=== PATIENT | female | born 1950 | race Caucasian/White ===

== ENCOUNTER 2016-09-11 12:00 | Outpatient (CLI) | payer MEDICAID ==
--- OUTSIDE RECORDS SUMMARY | 2016-09-10 05:54 | XMS REPORT | Continuity of Care Document ---
Author Author [facility] Organization [facility] Address Unknown Phone Unavailable Care Team Providers Care Photographic Equipment Assembler Name Role Phone PCP Unavailable Source Comments Some departments are not documenting in the electronic medical record. If you do not see the information that you expected, contact Release of Information in the Health Information Management department at [phone] for further assistance in locating additional records.[facility] Active Allergies and Adverse Reactions Allergen Noted Date Severity Reactions Comments Lactose 02/07/2016 Low UNKNOWN Pcn 02/07/2016 Low UNKNOWN Current Medications Prescription Sig. Disp. Refills Start End Date Status Date escitalopram oxalate Take 5 mg by mouth daily. Active (LEXAPRO) 10 mg tablet cyanocobalamin(+) Take 1,000 mcg by mouth Active (VITAMIN B-12) 500 mcg daily. tablet ERGOCALCIFEROL (VITAMIN Take 4,000 Int'l Units by Active D2) (VITAMIN D PO) mouth daily. CALCIUM CARBONATE Take 1 Tab by mouth Active (CALCIUM 500 PO) daily. aspirin EC 81 mg tablet Take 81 mg by mouth Active daily. Take with food. OMEPRAZOLE (PRILOSEC PO) Take 1 Tab by mouth Active daily. triamcinolone (NASACORT) Apply 2 Sprays to each Active 55 mcg nasal inhaler nostril as directed daily. MULTIVITAMINS WITH Take 1 Tab by mouth Active FLUORIDE (MULTI-VITAMIN daily. PO) loratadine (CLARITIN) 10 Take 10 mg by mouth Active mg tablet daily. gabapentin (NEURONTIN) Take 1 Cap by mouth at 60 Cap 5 02/07/20 Active 100 mg capsule bedtime daily. If 16 tolerating well may increase in 1-2 weeks up to 2 tabs at bedtime. Indications: NEUROPATHIC PAIN Active Problems Problem Noted Date MS (multiple sclerosis) ([facility]) 02/07/2016 Overview: Multiple Sclerosis Subtype: Relapsing remitting, last relapse 2015 Symptom onset: 1995 Date of Diagnosis: 1995 Current DMD: None Prior Medication failures: Solumedrol caused hypotension. Responded to ACTH Last MRI 11/2015 MRI brain shows no enhancing lesions per report MRI C-spine shows no lesions MRI T-spine shows 1 posterior cord lesion Last Assessment & Plan: Patient with history of RRMS presents to clinic to establish care her in [place] after moving from [place]. Her history, exam and MRI reports are consistent with a diagnosis of RRMS. She has not had many relapses and no relapses in the last year with no current activity on last MRI. Will repeat MRI brain in 6 months due to relapse last year Will continue off DMDs for now Continue vitamin D supplementation Encouraged healthy diet and exercise Will try lower dose of gabapentin for her neuropathic pain Will also try compounded gabapentin, amitriptyline, and lidocaine topical cream Social History Tobacco Use Types Packs/Day Years Used Date Former Smoker Quit: 02/05/1987 Smokeless Tobacco: Never Used Alcohol Use Drinks/Week oz/Week Comments Yes Seldom Last Filed Vital Signs Vital Sign Reading Time Taken Blood Pressure 160/89 02/07/2016 3:41 PM CDT Pulse 61 02/07/2016 3:41 PM CDT Temperature - - Respiratory Rate - - Height 1.626 m (5' 4") 02/07/2016 3:41 PM CDT Weight 86.002 kg (189 lb 9.6 oz) 02/07/2016 3:41 PM CDT Body Mass Index 32.53 02/07/2016 3:41 PM CDT Oxygen Saturation - - Plan of Care Health Maintenance Due Date Last Done Comments Hepatitis C Screening 1950 Physical (Comprehensive) 12/04/1959 Exam Pertussis Vaccine 12/04/1963 Tetanus Vaccine 1969 Cervical Cancer Screening 1973 Breast Cancer Screening 1992 Colorectal Cancer 2002 Screening Shingles Vaccine 2012 Influenza Vaccine 02/22/2016 Results from Last 3 Months Not on file
[~2016-09-11] VITALS: Ht 165.1 cm; Wt 86.2 kg
[~2016-09-11 12:00] MED LIST: CHOL500044 PO; CYAN50008 PO; ESCI10TA PO; GABA-486 PO; LORA10TA7 PO; NF-ESOM40C PO; TRIA10.8 NSEACH
[2016-09-12] MEDS ORDERED: SUCR1TAB36 PO (10:13)
[2016-09-12] MEDS ORDERED: PANT40TA2 PO (10:13)
== END 2016-09-11 13:19 ==
LOC: PREOP 12:00
PROVIDERS: ATTEND Surgery
DX: Z01.818 Encounter for other preprocedural examination (principal); R19.5 Other fecal abnormalities; K21.9 Gastro-esophageal reflux disease without esophagitis

== ENCOUNTER 2016-09-12 07:46 | Day surgery (SDC) | payer MEDICAID ==
[~2016-09-12] VITALS: Ht 165.1 cm; Wt 86.2 kg
[2016-09-12] MEDS ORDERED: NS IV 1000 ML 1,000 ML IV STA (08:13)
[2016-09-12 08:15] VITALS: BP 144/89
[2016-09-12] MEDS ORDERED: HURRICAINE EXT TUBE (BENZOCAINE) XX PRN (08:15)
[2016-09-12] MEDS ORDERED: NS IV 1000 ML 1,000 ML ONE (08:21)
[2016-09-12] MEDS ORDERED: MIDAZOLAM 2 MG/2 ML (VERSED) VIAL ONE (09:21)
[2016-09-12] MEDS ORDERED: proPOfol 200 MG/20 ML (DIPRIVAN) VIAL IV ONE (09:21)
[2016-09-12] MEDS ORDERED: ONDANSETRON 4 MG/2 ML (SDV) Z0FRAN ONE (09:33)
--- NOTE | 2016-09-12 09:38 | Progress Note-Pre Operative ---
Pre-Operative Progress Note H&P Reviewed The H&P was reviewed, patient examined and no changes noted. Date H&P Reviewed: Sep 12, 2016 Time H&P Reviewed: 09:38 Pre-Operative Diagnosis: gerd, change in bowel habits SURINDER WOODS DO Sep 12, 2016 09:38
[2016-09-12] MEDS ORDERED: GLYCOPYRROLATE 0.2 MG/ML (ROBINUL) 2 ML VIAL ONE (09:56)
[2016-09-12] MEDS ORDERED: PANT40TA2 PO (10:13)
[2016-09-12] MEDS ORDERED: SUCR1TAB36 PO (10:13)
--- NOTE | 2016-09-12 10:14 | Discharge Inst-Simple/Standard ---
Discharge Inst-Standard Discharge Medications New, Converted or Re-Newed RX: RX on Chart Patient Instructions/Follow Up Plan of Care/Instructions/FU: Colonoscopy in 10 years. Follow up with Dr. Fernandez in clinic in 2-3 weeks Small Frequent meals Activity as Tolerated: Yes Discharge Diet: Eat Small Frequent Meals CARLOS ALBERTO CONNOLLY APRN Sep 12, 2016 10:14
--- NOTE | 2016-09-12 10:30 | Progress Note-Post Operative ---
Post-Operative Progess Note Pre-Operative Diagnosis gerd, change in bowel habits Post-Operative Diagnosis minimal gastritis, hiatal hernia, normal colon Post-Op Procedure Note Date of Procedure: Sep 12, 2016 Procedure Note/Findings see note Anesthesia Type per heel caser Estimated blood loss (mL): none Specimen(s) collected antrum, ge junction SURINDER WOODS DO Sep 12, 2016 10:30 am
[2016-09-12 10:35] VITALS: BP 137/87
[2016-09-12 11:10] VITALS: BP 149/84
[2016-09-12 11:20] VITALS: BP 149/84
--- NOTE | 2016-09-12 12:52 | PROCEDURE REPORT ---
PROCEDURE PHYSICIAN: SURINDER WOODS DATE OF PROCEDURE: PREOPERATIVE DIAGNOSIS: 1. GERD. 2. Change in bowel habits. POSTOPERATIVE DIAGNOSES: 1. Minimal gastritis. 2. Hiatal hernia. 3. Normal colon. PROCEDURE: 1. EGD with biopsies. 2. Colonoscopy. SURGEON: Rebecca. ANESTHESIA: Per UTILITY AIDE. ESTIMATED BLOOD LOSS: None. COMPLICATIONS: None. INDICATIONS: The patient is a 65-year-old female was slightly worsening gastroesophageal reflux disease. She also had change in bowel habits. She understands the risk and benefits and wishes to proceed with procedure. Consent was signed on the chart. PROCEDURE: The patient was taken to the endoscopy suite, placed left lateral recumbent position. Timeout was performed. The scope was then inserted in the mouth down the esophagus, stomach and into the duodenum. There were no polyps, masses or ulcerations within the duodenum. The scope was then slowly retracted back into the stomach which was further insufflated. Changes of a little bit of minimal gastritis apparent. Biopsy of the antrum was obtained. The scope was also retroflexed noting no other pathology except for a hiatal hernia. The scope was then returned to its normal position slowly returned back into the distal esophagus. A biopsy was obtained at the GE junction was some slight erythematous changes. The scope was slowly retracted back noting no other pathology. COLONOSCOPY: Digital rectal exam was performed. There is no palpable polyps, masses, ulcerations. The scope was inserted into the rectum and advanced all of the way to the cecum with minimal difficulty. Prep was adequate. There were no polyps, masses, ulcerations within the cecum. The scope was then slowly retracted back. There were no polyps, masses, ulcerations within the, ascending, transverse, descending and sigmoid colon. There is no polyps, masses ulcers in the sigmoid colon. The scope was continued to be retracted until the rectum, where it was inserted and removed several times noting no other pathology. The patient tolerated procedure well without any complications. She was taken to recovery room in stable condition. RECOMMENDATIONS: The patient will be changed to Protonix 40 mg daily and Carafate 1 gram 4 times a day. The patient will need repeat colonoscopy in 10 years unless family history of colon cancer, then it would be every 5 years. If she has any problems prior to that, she should be reevaluated at that time. Job ID: [id number] Dictated Date: 09/12/2016 10:30:46 Cleaning Crew Member Date: 09/12/2016 12:45:15 / paz
--- OUTSIDE RECORDS SUMMARY | 2016-09-15 08:28 | XMS REPORT ---
Author Author LARY KIRKLAND [facility] Address Unknown Phone Unavailable Care Team Providers Care Rf Microwave Engineer Name Role Phone LARY KIRKLAND CP Unavailable Allergies No Known Allergies Problems Problem Type Condition Code Onset Dates Condition Status Problem Chronic kidney disease, unspecified stage N18.9 Active Problem Elevated blood pressure I10 Active Problem Multiple sclerosis G35 Active Problem Chronic pain G89.29 Active Medications No Known Medications Results No Known Results Summary Purpose eClinicalWorks Submission
--- OUTSIDE RECORDS SUMMARY | 2016-09-15 08:28 | XMS REPORT ---
Author Author LARY KIRKLAND [facility] Address [address] [place] [address] Care Team Providers Care Parts Counterman Name Role Phone LARY KIRKLAND Unavailable PROBLEMS Type Condition ICD9-CM Code [id number] Code Onset Dates Condition Status SNOMED Code Problem Multiple sclerosis G35 Active [id number] Problem Chronic kidney disease, unspecified stage N18.9 Active 916083994 Problem Elevated blood pressure I10 Active 95135827 Problem Chronic pain G89.29 Active 47764937 ALLERGIES Unknown Allergies SOCIAL HISTORY No smoking Hx information available PLAN OF CARE VITAL SIGNS MEDICATIONS Medication Instructions Dosage Frequency Start Date End Date Duration Status Escitalopram Oxalate 10 mg Orally Once a day 1/2 tablet 24h 30 days Active RESULTS No Results PROCEDURES No Known procedures IMMUNIZATIONS No Known Immunizations
--- OUTSIDE RECORDS SUMMARY | 2016-09-15 08:28 | XMS REPORT | Continuity of Care Document ---
Author Author [facility] Organization [facility] Address Unknown Phone Unavailable Care Team Providers Care Ambulance Paramedic Name Role Phone PCP Unavailable Source Comments Some departments are not documenting in the electronic medical record. If you do not see the information that you expected, contact Release of Information in the Health Information Management department at [phone] for further assistance in locating additional records.[facility] Active Allergies and Adverse Reactions Allergen Noted [...] Problems Problem Noted Date MS (multiple sclerosis) ([facility]) 02/07/2016 Overview: Multiple Sclerosis Subtype: Relapsing remitting, last relapse 2014 Symptom onset: 1995 Date of Diagnosis: 1995 Current DMD: None Prior Medication failures: Solumedrol caused hypotension. Responded to ACTH Last MRI 11/2015 MRI brain shows no enhancing lesions per report MRI C-spine shows no lesions MRI T-spine shows 1 posterior cord lesion Last Assessment & Plan: Patient with history of RRMS presents to clinic to establish care her in [place] after moving from [place]. Her history, exam and MRI reports are [...] 2002 Screening Shingles Vaccine 2012 Influenza Vaccine 02/21/2017 Results from Last 3 Months Not on file
--- OUTSIDE RECORDS SUMMARY | 2016-09-15 08:29 | XMS REPORT ---
Author Author LARY KIRKLAND [facility] [employer] Address Unknown Phone Unavailable Care Team Providers Care Fisher Name Role Phone LARY KIRKLAND Unavailable Allergies, Adverse Reactions, Alerts Substance Reaction Event Type Penicillin V Potassium rash Drug Allergy MethylPREDNISolone bradycardia Drug Allergy NSAIDS kidney issues Non Drug Allergy Lactose intolerant Info Not Available Non Drug Allergy Problems Problem Type Condition Code Onset Dates Condition Status Assessment Chronic pain G89.29 Active Problem Chronic kidney disease, unspecified stage N18.9 Active Problem Elevated blood pressure I10 Active Problem Multiple sclerosis G35 Active Assessment Chronic kidney disease, unspecified stage N18.9 Active Assessment Elevated blood pressure I10 Active Problem Chronic pain G89.29 Active Assessment Multiple sclerosis G35 Active Medications Medication Code System Code Instructions Start Date End Date Status Dosage Vitamin B12 [facility] [address] 100 MCG Orally not defined Omeprazole [facility] [address]-18 20 mg Orally Once a day 1 capsule Escitalopram Oxalate [facility] [address]-49 10 MG Orally Once a day 1/ 2 tablet Multivitamins [facility] 375[address] Orally not defined Vitamin D3 [facility] [address]383[address] 1000 UNIT Orally Once a day 4 capsule Nasacort Allergy 24HR [facility] 77689-[address]69 55 MCG/ACT Nasally Once a day 2 puff in each nostril Tums [facility] [address]-07 500 MG Orally Four times a day 1 tablet as needed Calcium 600 + D [facility] [address]75-04784 600-200 MG-UNIT Orally not defined Procedures Procedure Coding System Code Date ASSAY OF VITAMIN D CPT-4 28493 October 11, 2015 COMPLETE CBC W/AUTO DIFF WBC CPT-4 68462 October 11, 2015 COMPREHEN METABOLIC PANEL CPT-4 12910 October 11, 2015 Office Visit, New Pt., Level 4 CPT-4 71253 October 11, 2015 ASSAY THYROID STIM HORMONE CPT-4 46026 October 11, 2015 VENIPUNCT, ROUTINE* CPT-4 79313 October 11, 2015 Vital Signs Date/Time: October 11, 2015 Temperature 97.4 F Weight 183.4 lbs Height 66 in BMI 29.60 Index Blood Pressure Diastolic 90 mmHg Blood Pressure Systolic 142 mmHg Cardiac Monitoring Heart Rate 74 bpm Results Name Result Date Reference Range Unit Abnormality Flag ROUTINE VENIPUNCTURE Summary Purpose eClinicalWorks Submission
== END 2016-09-12 11:20 | disposition home or self-care (01) ==
LOC: DELPENDDIS → ENDO 07:46
PROVIDERS: ATTEND Surgery
DX: R19.4 Change in bowel habit (principal); K21.9 Gastro-esophageal reflux disease without esophagitis; K44.9 Diaphragmatic hernia without obstruction or gangrene; K29.70 Gastritis, unspecified, without bleeding
CPT/HCPCS: 88305